=== PATIENT | male | born 1980 | race Caucasian/White ===

== ENCOUNTER 2016-07-19 13:21 | Emergency (ER) ==
[2016-07-19 13:30] VITALS: BP 134/93; TEMP 99.4; BMI 40.2
--- NOTE | 2016-07-19 13:46 | ED.PDOC ---
General ED Provider: Dr. BONI ALBERTO JR Chief Complaint: Ankle Pain/Injury Stated Complaint: fell on some stairs and twisted right ankle on a rock at work[ End]45min 99.4 87 18 96% 134/93 3/10 inversion Time Seen by Physician: 13:46 Mode of Arrival: Wheelchair Information Source: Patient Exam Limitations: No limitations Primary Care Provider: JOSE HUERTA Nursing and Triage Documentation Reviewed and Agree: No Review of Systems - Review Of Systems Constitutional: Reports: No symptoms Eyes: Reports: No symptoms Ears, Nose, Mouth, Throat: Reports: No symptoms Respiratory: Reports: No symptoms Cardiac: Reports: No symptoms GI: Reports: No symptoms : Reports: No symptoms Musculoskeletal: Reports: Joint pain (right lateral ankle) Skin: Reports: Lesions (right forearm abrasion) Neurological: Reports: No symptoms Endocrine: Reports: No symptoms Hematologic/Lymphatic: Reports: No symptoms All Other Systems: Other Past Medical History - Past Medical History Previously Healthy: Yes Endocrine: Reports: None Cardiovascular: Reports: None Respiratory: Reports: None Hematological: Reports: None Gastrointestinal: Reports: None Genitourinary: Reports: None Neuro/Psych: Reports: None Musculoskeletal: Reports: None Cancer: Reports: None - Surgical History General Surgical History: Reports: Appendectomy - Family History Family History: Reports: Unknown - Social History Smoking Status: Never smoker Hx Substance Use: No Alcohol Screening: None Physical Exam - Physical Exam Appearance: Well-appearing, Obese Pain Distress: Moderate Eyes: LUCHO, EOMI, Conjunctiva clear ENT: Ears normal, Nose normal, Oropharynx normal Neck: Supple Respiratory: Airway patent, Breath sounds clear, Breath sounds equal, Respirations nonlabored Cardiovascular: RRR, Pulses normal, No rub, No murmur GI/: Soft, Nontender, No masses, Bowel sounds normal, No Organomegaly Musculoskeletal: Normal strength, ROM intact, No calf tenderness (tender tip of fibula on right), Edema Skin: Warm, Dry, Normal color Neurological: Sensation intact, Motor intact, Reflexes intact, Cranial nerves intact, Alert, Oriented Psychiatric: Affect appropriate, Mood appropriate Critical Care Note - Critical Care Note Total Time (mins): 0 Course - Course Orders, Labs, Meds: Orders Category Date Time Status TREATMENT ORDER:NURSING ONCE CARE 07/19/16 13:53 Active Air cast [ED SPLINT APPLICATION] .ONCE EMERGENCY 07/19/16 13:53 Active Wound care [ED WOUND CARE] .ONCE EMERGENCY 07/19/16 13:51 Active ANKLE, RIGHT MIN 3 VIEWS Stat RADS 07/19/16 13:46 Completed Vital Signs: Temp Pulse Resp BP Pulse Ox 07/19/16 13:23 99.4 F 87 18 134/93 H 96 Departure - Departure Time of Disposition: 14:39 Disposition: HOME SELF-CARE Discharge Problem: Ankle fracture, lateral malleolus, closed Qualifiers: Encounter type: initial encounter Fracture alignment: nondisplaced Laterality: right Qualifier Code: (S82.64XA) Nondisplaced fracture of lateral malleolus of right fibula, initial encounter for closed fracture Instructions: Ankle Fracture (ED) Condition: Good Pt referred to PMD for follow-up: Yes Additional Instructions: limit weight right foot follow up PMD discuss orthopedic referral return if worsening Tylenol or [place] for pain limit Tylenol to 4000mg per 24 hours Prescriptions: Hydrocodone Bit/Acetaminophen [[place] 5-325] 1 - 2 tab PO Q6HR PRN #12 tablet PRN Reason: pain Allergies/Adverse Reactions: Allergies iodine Adverse Reaction (Verified 07/19/16 13:30) shellfish derived Adverse Reaction (Verified 07/19/16 13:30) Home Medications: Ambulatory Orders Hydrocodone Bit/Acetaminophen [[place] 5-325] 1 - 2 tab PO Q6HR PRN #12 tablet
--- NOTE | 2016-07-19 14:27 | DI ---
EXAM: Radiographs, right ankle HISTORY: Initial presentation for right ankle injury. COMPARISON: None available. TECHNIQUE: Three views. FINDINGS: Transverse lucency through the medial malleolus on the frontal view noted. There is lamar cent lateral soft tissue swelling. Moderate spurring noted off the medial and lateral malleoli as w ell as on both sides of the tibiotalar joint. Small retrocalcaneal spur is present. IMPRESSION: Suspect nondisplaced lateral malleolar fracture.
== END 2016-07-19 14:53 | disposition home or self-care (01) ==
LOC: ED 13:21
DX: S82.64XA Nondisplaced fracture of lateral malleolus of right fibula, initial encounter for closed fracture (principal); S50.811A Abrasion of right forearm, initial encounter; W10.9XXA Fall (on) (from) unspecified stairs and steps, initial encounter; Y99.0 Civilian activity done for income or pay
CPT/HCPCS: 99283